=== PATIENT | male | born 1990 | race Hispanic/Latino ===

== ENCOUNTER 2022-11-12 16:15 | Emergency (ER) | payer SELFPAY ==
[2022-11-12] MEDS ORDERED: ONDANSETRON 4 MG/2 ML VIAL ONE (17:10)
[2022-11-12] MEDS ORDERED: NA CHLORIDE 0.9% 1,000 ML ONE ×3 (17:10→20:09)
[2022-11-12 17:36] LABS: Hematocrit 48.7 % (39.6-49.0); Lymphocytes % 5.5 % (15.3-44.8); MCV 90.7 fL (80-100); MPV 6.9 fL (7.6-11.3); Platelets 253 thou/uL (152-406); RBC Red Blood Cell Count 5.37 M/uL (4.33-5.43)
[2022-11-12 18:20] LABS: Albumin 4.8 g/dL (3.4-5.0); Bilirubin Direct 0.1 mg/dL (0-0.2); Bilirubin Indirect, Calculated 0.3 mg/dL (0.2-0.8); Bilirubin Total 0.4 mg/dL (0.2-1.0); Magnesium 2.7 mg/dL (1.6-2.4); Potassium 3.1 mEq/L (3.5-5.1); Protein, Total 9.3 g/dL (6.4-8.2); Troponin High Sensitivity 4.7 pg/mL (<58.9)
[2022-11-12] MEDS ORDERED: POTASSIUM 25 MEQ EFFERV TAB ONE ×2 (18:47→23:06)
[2022-11-12 22:26] LABS: Potassium 3.7 mEq/L (3.5-5.1)
--- NOTE | 2022-11-12 22:45 | EDPHYS ---
Physician Documentation [facility] Name: Nadeem Pink Age: 32 yrs Sex: Male : 1990 Arrival Date: 11/12/2022 Time: 16:15 Bed 10 Private MD: ED Physician Saul Torre HPI: 11/12 16:38 This 32 yrs old Male presents to ER via Ambulatory with complaints of Heat cp Exposure, Near Syncope. 16:38 Type of Exposure: heat. Context: The problem was sustained at work. Onset: The cp symptoms/episode began/occurred today. Symptoms: nausea with dry heaves, cramping all over, near-syncope. 16:38 The patient has not experienced similar symptoms in the past. cp Historical: - Allergies: 16:30 No Known Allergies; iw - Home Meds: 16:30 None [Active]; iw - PMHx: 16:30 None; iw - PSHx: 16:30 None; iw - Immunization history:: Adult Immunizations not up to date. - Social history:: Smoking status: Patient reports the use of cigarette tobacco products, Reported history of juuling and/or vaping. ROS: 16:45 Constitutional: Negative for fever. cp 16:45 Cardiovascular: Positive for chest pain. cp 16:45 Eyes: Negative for injury, pain, redness, and discharge. cp 16:45 ENT: Negative for drainage from ear(s), ear pain, sore throat, difficulty swallowing, difficulty handling secretions. 16:45 Respiratory: Negative for cough, shortness of breath, wheezing. 16:45 Abdomen/GI: Positive for nausea and vomiting, abdominal cramps, Negative for diarrhea, constipation, hematemesis. 16:45 : Positive for small amounts. 16:45 Neuro: Positive for dizziness, near syncope, weakness, Negative for altered mental status. 16:45 All other systems are negative. Exam: 16:50 Constitutional: The patient appears in no acute distress, alert, awake, cp non-diaphoretic, non-toxic, well developed, well nourished, uncomfortable. 16:50 Head/Face: Normocephalic, atraumatic. cp 16:50 Eyes: Periorbital structures: appear normal, Pupils: equal, round, and reactive to light and accomodation, Extraocular movements: intact throughout, Conjunctiva: normal, no exudate, no injection, Sclera: no appreciated abnormality, Lids and lashes: appear normal, bilaterally. 16:50 ENT: External ear(s): are unremarkable, Nose: is normal, Mouth: Lips: moist, Oral mucosa: pink and intact, moist, Posterior pharynx: is normal, airway is patent, no erythema, no exudate. 16:50 Neck: ROM/movement: is normal, is supple, without pain, no range of motions limitations. 16:50 Chest/axilla: Inspection: normal, Palpation: crepitus, is not appreciated, tenderness, that is mild, of the anterior aspect of left upper chest and left breast. 16:50 Cardiovascular: Rate: normal, Rhythm: regular, Edema: is not appreciated, JVD: is not appreciated. 16:50 Respiratory: the patient does not display signs of respiratory distress, Respirations: normal, no retractions, labored breathing, is not present, Breath sounds: are clear throughout, no decreased breath sounds, no stridor, no wheezing. 16:50 Abdomen/GI: Inspection: abdomen appears normal, Bowel sounds: active, all quadrants, Palpation: soft, in all quadrants, mild abdominal tenderness, in all quadrants, rebound tenderness, is not appreciated, involuntary guarding, is not appreciated. 16:50 Back: CVA tenderness, is absent. 16:50 Skin: cellulitis, is not appreciated, no rash present. 16:50 Neuro: Orientation: to person, place \T\ time. Mentation: is normal, Cerebellar function: is grossly normal, Motor: moves all fours, strength is normal, Sensation: is normal. 17:15 ECG was reviewed by the Attending Physician. cp Vital Signs: 16:28 BP 130 / 91; Pulse 92; Resp 18; Pulse Ox 100% on R/A; Weight 70.31 kg; Height 5 ft. 7 iw in. ; Pain 8/10; 17:17 BP 123 / 83; Pulse 80; Resp 18; Pulse Ox 100% on R/A; mb9 18:40 BP 134 / 87; Pulse 74; Resp 16; Pulse Ox 100% on R/A; mb9 19:30 BP 134 / 97; Pulse 69; Resp 16; Pulse Ox 100% ; pf1 20:30 BP 130 / 88; Pulse 72; Resp 16; Pulse Ox 99% ; pf1 21:30 BP 135 / 94; Pulse 75; Resp 16; Pulse Ox 98% on R/A; pf1 22:30 BP 132 / 87; Pulse 76; Resp 16; Pulse Ox 100% on R/A; Pain 0/10; pf1 16:28 Body Mass Index 24.28 (70.31 kg, 170.18 cm) iw 16:28 Pain Scale: Adult iw 22:30 Pain Scale: Adult pf1 MDM: 16:32 Patient medically screened. 22:43 Data reviewed: vital signs, nurses notes, lab test result(s), EKG. 22:43 I considered the following discharge prescriptions or medication management in the emergency department Medications were administered in the Emergency Department. See MAR. Independent interpretation of the following test(s) in the Emergency Department EKG: See my EKG interpretation above. Counseling: I had a detailed discussion with the patient and/or guardian regarding: the historical points, exam findings, and any diagnostic results supporting the discharge/admit diagnosis, lab results, the need for outpatient follow up, a family practitioner, to return to the emergency department if symptoms worsen or persist or if there are any questions or concerns that arise at home. Response to treatment: the patient's symptoms have markedly improved after treatment, and as a result, I will discharge patient. 11/12 16:38 Order name: Basic Metabolic Panel; Complete Time: 18:27 11/12 18:28 Interpretation: Normal except: NA 130; K 3.1; CL 97; GLUC 138; BUN 25; CRE 2.07; GFR 43. 11/12 16:38 Order name: CBC with Diff; Complete Time: 18:27 11/12 18:28 Interpretation: Normal except: WBC 17.90; MPV 6.9; ANAMIKA% 87.1; LYM% 5.5; NEUT A 15.6. 11/12 16:38 Order name: LFT's; Complete Time: 18:27 11/12 18:28 Interpretation: Normal except: TP 9.3; GLOB 4.5. 11/12 16:38 Order name: Magnesium; Complete Time: 18:27 11/12 16:38 Order name: Troponin HS; Complete Time: 18:27 11/12 16:38 Order name: CK; Complete Time: 18:27 11/12 18:28 Interpretation: Abnormal: CPK 338. cp 11/12 20:02 Order name: BMP: recheck after administration 3rd liter; Complete Time: 22:40 cp 11/12 22:41 Interpretation: Normal except: NA 137; K 3.7; GLUC 114; CA 7.8. cp 11/12 16:38 Order name: EKG; Complete Time: 16:56 cp 11/12 16:38 Order name: Cardiac monitoring; Complete Time: 17:01 cp 11/12 16:38 Order name: EKG - Nurse/Tech; Complete Time: 17:18 cp 11/12 16:38 Order name: IV Saline Lock; Complete Time: 17:18 cp 11/12 16:38 Order name: Labs collected and sent; Complete Time: 17:18 cp 11/12 16:38 Order name: O2 Per Protocol; Complete Time: 17:01 cp 11/12 16:38 Order name: O2 Sat Monitoring; Complete Time: 17:01 cp 11/12 20:01 Order name: PO challenge; Complete Time: 20:32 cp EC:15 Rate is 84 beats/min. Rhythm is regular. UT interval is normal. QRS interval is normal. cp QT interval is normal. T waves are Inverted in lead aVR. Interpreted by me. Reviewed by me. Administered Medications: 17:18 Drug: Ondansetron IVP 4 mg Route: IVP; Site: right antecubital; mb9 17:42 Follow up: Response: No adverse reaction mb9 17:18 Drug: NS 0.9% IV 1000 ml Route: IV; Rate: 1 bolus; Site: right antecubital; mb9 18:31 Follow up: Response: No adverse reaction; IV Status: Completed infusion mb9 18:40 Drug: NS 0.9% IV 1000 ml Route: IV; Rate: 1 bolus; Site: right antecubital; mb9 19:40 Follow up: Response: No adverse reaction; Marked relief of symptoms; IV Status: pf1 Completed infusion; IV Intake: 1000ml 18:40 Drug: Potassium PO Effervescent Tablet 50 mEq Route: PO; mb9 19:40 Follow up: Response: No adverse reaction; Marked relief of symptoms pf1 20:04 Drug: NS 0.9% IV 1000 ml Route: IV; Rate: 1 bolus; Site: right antecubital; pf1 21:00 Follow up: Response: No adverse reaction; Marked relief of symptoms; IV Status: pf1 Completed infusion; IV Intake: 1000ml 22:57 Drug: Potassium PO Effervescent Tablet 25 mEq Route: PO; pf1 23:06 Follow up: Response: No adverse reaction; Marked relief of symptoms pf1 Disposition Summary: 11/12/22 22:44 Discharge Ordered Location: Home cp Problem: new cp Symptoms: have improved cp Condition: Stable cp Diagnosis - Unspecified injury of unspecified kidney, initial encounter cp - Dehydration cp - Hypokalemia cp - Syncope Near cp Followup: cp - With: Private Physician - When: 2 - 3 days - Reason: Recheck today's complaints Discharge Instructions: - Discharge Summary Sheet cp - Dehydration, Adult cp - Potassium Content of Foods cp - Near-Syncope cp - Acute Kidney Injury, Adult cp - Hypokalemia cp Forms: - Medication Reconciliation Form cp - Thank You Letter cp - Antibiotic Education cp - Prescription Opioid Use cp - Patient Portal Instructions cp Signatures: Dispatcher [employer] Viktoriya Schultz RN RN iw Page, Corey, PA PA cp Breneman, Mary Beth RN RN mb9 Roxy Jade RN RN pf1 Corrections: (The following items were deleted from the chart) 18:28 18:28 Normal except: WBC 17.90. cp cp 22:47 22:46 Heat syncope cp cp
--- NOTE | 2022-11-12 22:45 | ER ---
Nurse's Notes [facility] Name: Nadeem Pink Age: 32 yrs Sex: Male : 1990 Arrival Date: 11/12/2022 Time: 16:15 Bed 10 Private MD: Diagnosis: Unspecified injury of unspecified kidney, initial encounter;Dehydration;Hypokalemia;Syncope Near Presentation: 11/12 16:28 Chief complaint: Spouse and/or significant other states: pt has been working outside all day, at 230 he couldn't get up and started cramping and felt like he was going to pass out , he still feel like he might pass out and cramping. Coronavirus screen: At this time, the client does not indicate any symptoms associated with coronavirus-19. Ebola Screen: Patient negative for fever greater than or equal to 101.5 degrees Fahrenheit, and additional compatible Ebola Virus Disease symptoms Patient denies exposure to infectious person. Patient denies travel to an Ebola-affected area in the 21 days before illness onset. No symptoms or risks identified at this time. Initial Sepsis Screen: Does the patient meet any 2 criteria? No. Patient's initial sepsis screen is negative. Does the patient have a suspected source of infection? No. Patient's initial sepsis screen is negative. Risk Assessment: Do you want to hurt yourself or someone else? Patient reports no desire to harm self or others. Onset of symptoms was November 12, 2022. 16:28 Method Of Arrival: Ambulatory iw 16:28 Acuity: EDWIN 3 iw Triage Assessment: 19:00 General: see other triage. pf1 Historical: - Allergies: 16:30 No Known Allergies; iw - Home Meds: 16:30 None [Active]; iw - PMHx: 16:30 None; iw - PSHx: 16:30 None; iw - Immunization history:: Adult Immunizations not up to date. - Social history:: Smoking status: Patient reports the use of cigarette tobacco products, Reported history of juuling and/or vaping. Screenin:18 [facility] ED Fall Risk Assessment (Adult) History of falling in the last 3 months, mb9 including since admission No falls in past 3 months (0 pts) Confusion or Disorientation No (0 pts) Intoxicated or Sedated No (0 pts) Impaired Gait No (0 pts) Mobility Assist Device Used No (0 pt) Altered Elimination No (0 pt) Score/Fall Risk Level 0 - 2 = Low Risk Oriented to surroundings, Maintained a safe environment, Educated pt \T\ family on fall prevention, incl call for assistance when getting out of bed. Abuse screen: Denies threats or abuse. Nutritional screening: No deficits noted. Tuberculosis screening: No symptoms or risk factors identified. Assessment: 17:16 General: Appears uncomfortable, Behavior is calm, cooperative. Pain: Denies pain. mb9 Neuro: Miller Agitation-Sedation Scale (RASS): 0 - Alert and Calm Level of Consciousness is awake, alert, obeys commands, Oriented to person, place, time, situation, Appropriate for age Reports dizziness. Cardiovascular: Patient's skin is warm and dry. Respiratory: Airway is patent Respiratory effort is even, unlabored, Respiratory pattern is regular, symmetrical. GI: Abdomen is flat, non-distended, Bowel sounds present X 4 quads. Abd is soft and non tender X 4 quads. Reports nausea. EENT: No signs and/or symptoms were reported regarding the EENT system. Derm: Skin is pink, warm \T\ dry. Musculoskeletal: Range of motion: intact in all extremities, Reports cramping in muscles. 18:40 Reassessment: Patient and/or family updated on plan of care and expected duration. Pain mb9 level reassessed. Patient is alert, oriented x 3, equal unlabored respirations, skin warm/dry/pink. Patient states feeling better. Patient states symptoms have improved. 19:00 Reassessment: Patient appears in no apparent distress at this time. Patient and/or pf1 family updated on plan of care and expected duration. Pain level reassessed. Patient is alert, oriented x 3, equal unlabored respirations, skin warm/dry/pink. Patient states feeling better. Patient states symptoms have improved. 20:00 Reassessment: Patient appears in no apparent distress at this time. Patient and/or pf1 family updated on plan of care and expected duration. Pain level reassessed. Patient is alert, oriented x 3, equal unlabored respirations, skin warm/dry/pink. Patient states feeling better. Patient states symptoms have improved. 21:00 Reassessment: Patient appears in no apparent distress at this time. Patient and/or pf1 family updated on plan of care and expected duration. Pain level reassessed. Patient is alert, oriented x 3, equal unlabored respirations, skin warm/dry/pink. Patient states feeling better. Patient states symptoms have improved. 22:00 Reassessment: Patient appears in no apparent distress at this time. Patient and/or pf1 family updated on plan of care and expected duration. Pain level reassessed. Patient is alert, oriented x 3, equal unlabored respirations, skin warm/dry/pink. Patient states feeling better. Patient states symptoms have improved. 23:00 Reassessment: Patient appears in no apparent distress at this time. Patient and/or pf1 family updated on plan of care and expected duration. Pain level reassessed. Patient is alert, oriented x 3, equal unlabored respirations, skin warm/dry/pink. Patient states feeling better. Patient states symptoms have improved. Vital Signs: 16:28 BP 130 / 91; Pulse 92; Resp 18; Pulse Ox 100% on R/A; Weight 70.31 kg; Height 5 ft. 7 iw in. ; Pain 8/10; 17:17 BP 123 / 83; Pulse 80; Resp 18; Pulse Ox 100% on R/A; mb9 18:40 BP 134 / 87; Pulse 74; Resp 16; Pulse Ox 100% on R/A; mb9 19:30 BP 134 / 97; Pulse 69; Resp 16; Pulse Ox 100% ; pf1 20:30 BP 130 / 88; Pulse 72; Resp 16; Pulse Ox 99% ; pf1 21:30 BP 135 / 94; Pulse 75; Resp 16; Pulse Ox 98% on R/A; pf1 22:30 BP 132 / 87; Pulse 76; Resp 16; Pulse Ox 100% on R/A; Pain 0/10; pf1 16:28 Body Mass Index 24.28 (70.31 kg, 170.18 cm) iw 16:28 Pain Scale: Adult iw 22:30 Pain Scale: Adult pf1 ED Course: 16:21 Patient arrived in ED. mg5 16:21 Jeremy Mercado PA is PHCP. cp 16:21 Saul Torre MD is Attending Physician. cp 16:30 Triage completed. iw 16:30 Arm band placed on. iw 16:47 Marilyn Dupree, RN is Primary Nurse. mb9 17:17 EKG done, by ED staff, reviewed by Marilyn Dupree RN. Inserted saline lock: 20 mb9 gauge in right antecubital area, using aseptic technique. 17:18 Placed in gown. Bed in low position. Call light in reach. Side rails up X 1. Client mb9 placed on continuous cardiac and pulse oximetry monitoring. NIBP monitoring applied. patient monitor on. 17:18 Basic Metabolic Panel Sent. mb9 17:18 CBC with Diff Sent. mb9 17:18 LFT's Sent. mb9 17:18 Magnesium Sent. mb9 17:18 Troponin HS Sent. mb9 22:15 BMP: recheck after administration 3rd liter Sent. pf1 23:00 Provided Education on: hydration education. pf1 23:06 IV discontinued, intact, bleeding controlled, No redness/swelling at site. Pressure pf1 dressing applied. 23:06 No provider procedures requiring assistance completed. pf1 Administered Medications: 17:18 Drug: Ondansetron IVP 4 mg Route: IVP; Site: right antecubital; mb9 17:42 Follow up: Response: No adverse reaction mb9 17:18 Drug: NS 0.9% IV 1000 ml Route: IV; Rate: 1 bolus; Site: right antecubital; mb9 18:31 Follow up: Response: No adverse reaction; IV Status: Completed infusion mb9 18:40 Drug: NS 0.9% IV 1000 ml Route: IV; Rate: 1 bolus; Site: right antecubital; mb9 19:40 Follow up: Response: No adverse reaction; Marked relief of symptoms; IV Status: pf1 Completed infusion; IV Intake: 1000ml 18:40 Drug: Potassium PO Effervescent Tablet 50 mEq Route: PO; mb9 19:40 Follow up: Response: No adverse reaction; Marked relief of symptoms pf1 20:04 Drug: NS 0.9% IV 1000 ml Route: IV; Rate: 1 bolus; Site: right antecubital; pf1 21:00 Follow up: Response: No adverse reaction; Marked relief of symptoms; IV Status: pf1 Completed infusion; IV Intake: 1000ml 22:57 Drug: Potassium PO Effervescent Tablet 25 mEq Route: PO; pf1 23:06 Follow up: Response: No adverse reaction; Marked relief of symptoms pf1 Medication: 17:17 VIS not applicable for this client. mb9 Intake: 19:40 IV: 1000ml; Total: 1000ml. pf1 21:00 IV: 1000ml; Total: 2000ml. pf1 Outcome: 22:44 Discharge ordered by . cp 23:05 Discharged to home ambulatory, with family. pf1 23:05 Condition: improved 23:05 Discharge instructions given to patient, family, Instructed on discharge instructions, follow up and referral plans. Demonstrated understanding of instructions, follow-up care. 23:06 Patient left the ED. pf1 Signatures: Viktoriya Campbell RN RN iw Jeremy Mercado PA PA cp Breneman, Mary Beth RN RN mb9 Roxy Jade RN RN pf1 Yris Lowe mg5
[2022-11-12 23:41] VITALS: O2SAT 100
[2022-11-12 23:52] VITALS: BP 134/87
--- NOTE | 2022-11-13 14:12 | EKG ---
Test Date: 2022-11-12 Test Time: 17:08:51 Implementation Project Manager: MB MEASUREMENT RESULTS: Intervals: Rate: 84 [place]: 152 QRSD: 96 QT: 368 QTc: 434 [place]: P: 69 [place]: 152 QRS: 66 T: 72 INTERPRETIVE STATEMENTS: Normal sinus rhythm Normal ECG No previous ECG available for comparison Electronically Signed On 11-13-22 14:10:41 CDT by Shawn Healy
== END 2022-11-12 23:06 | disposition home or self-care (01) ==
LOC: ER 16:15
DX: S09.90XA Unspecified injury of head, initial encounter (principal); E86.0 Dehydration; E87.6 Hypokalemia; R55 Syncope and collapse
CPT/HCPCS: 36415; 80048; 80076; 82550; 83735; 84484; 85025; 93005; J2405; J7030